=== PATIENT | female | born 1970 ===

== ENCOUNTER 2023-03-09 05:20 | Day surgery (SDC) | payer OTHER | END 2023-03-09 13:00 | disposition home or self-care (01) | LOC: CIR.AMB 05:20 | PROVIDERS: ATTEND Colon & Rectal Surgery | DX: R85.613 High grade squamous intraepithelial lesion on cytologic smear of anus (HGSIL) (principal); K64.2 Third degree hemorrhoids; K64.4 Residual hemorrhoidal skin tags; Z20.822 Contact with and (suspected) exposure to COVID-19; Z88.6 Allergy status to analgesic agent ==